=== PATIENT | female | born 1945 | race Caucasian/White ===

== ENCOUNTER → 2018-01-14 | Outpatient (CLI) | payer MEDICARE ==
[~2018-01-14] MED LIST: AMLO5TAB96 PO; B COTAB3 PO; CLON1 PO; HYDR12.56 PO; MILK250C2 PO; NEXI40CA PO; OMEGCAP2 PO; OXYC1CON3 PO; PROP60TA2 PO; VITA400C70 PO
--- NOTE | 2018-01-18 09:14 | RSPPFT ---
DATE OF PROCEDURE: 01/14/18 COMMENTS: VOLUMES DYNAMIC: FVC and FEV1 moderately to severely reduced. STATIC: Could not be performed. Labored breathing. FLOWS: FEV1% mildly reduced; FEF 25-75 severely reduced. DIFFUSION: Severely reduced. FLOW VOLUME LOOP: Pattern of variable intrathoracic airways obstruction. IMPRESSION: This appears to be a severe obstructive ventilatory defect with significant reduction in diffusion suggestive of emphysema. Full lung volumes would be necessary to exclude a co-existent restriction. There is significant improvement post-bronchodilator.
== END ==
LOC: HRSP 12:53
PROVIDERS: ATTEND Internal Medicine
DX: J44.9 Chronic obstructive pulmonary disease, unspecified (principal)
CPT/HCPCS: 36600; 82805; 94060; 94618; 94729